=== PATIENT | female | born 1955 | race American Indian/Alaskan Native ===

== ENCOUNTER 2016-08-12 09:19 | Emergency (ER) | payer OTHER ==
[2016-08-12 09:28] VITALS: BP 159/94
[2016-08-12] MEDS ORDERED: BOOSTRIX IM ONE (11:04)
--- NOTE | 2016-08-12 11:08 | Emergency Department Report ---
ED Laceration HPI - HPI Chief Complaint: Wound/Laceration Stated Complaint: LT FINGER CUT Occurred When: Today Location: Upper Extremity Severity: mild Tetanus Status: Unknown Laceration Symptoms: Yes Pain, No Foreign Body Sensation, No Numbness, No Weakness Other History: 60-year-old -[place] female with a past medical history of hypertension currently taking no medications comes in for laceration to the finger of her left hand middle finger. Patient reports that she was cutting hedges in her fingertips to clippers. Patient reports she is not sure that she is up-to-date on her tetanus. Patient does report she ran the water over the wound and wrapped it up applied pressure and came to the emergency room for evaluation. ED Review of Systems ROS: Stated complaint: LT FINGER CUT Other details as noted in HPI Comment: All other systems reviewed and negative Constitutional: denies: chills, fever Eyes: denies: eye pain, eye discharge, vision change ENT: denies: ear pain, throat pain Respiratory: denies: cough, shortness of breath, wheezing Cardiovascular: denies: chest pain, palpitations ED Past Medical Hx - Past Medical History Hx Hypertension: Yes - Surgical History Hx Cholecystectomy: Yes Additional Surgical History: CARPAL TUNNEL - Social History Smoking Status: Never Smoker Substance Use Type: Alcohol Laceration Physical Exam - Exam General: Vital signs noted. No distress. Alert and acting appropriately. Wound Length (cm): 1 Laceration Location: Upper Extremity Laceration Exam: Yes Normal Distal CMS, No Foreign Body, No Exposed Tendon, Vessel, or Nerve, No Tendon Injury ED Course Vital Signs 08/12/16 09:24 Temperature 97.8 F Pulse Rate 97 H Respiratory 18 Rate Blood Pressure 159/94 O2 Sat by Pulse 99 Oximetry - Laceration /Wound Repair Left Finger Wound Location: upper extremity Wound Length (cm): 1 Wound's Depth, Shape: superficial Wound Explored: clean Betadine Prep?: Yes Wound Debrided: minimal Wound Repaired With: Dermabond ED Medical Decision Making - Medical Decision Making Patient's been evaluated by this provider fast track. Patient's wound was able to be repaired with Dermabond. Clean sterile dressing placed. Tetanus vaccine order. Discussed with patient to keep the area clean and dry. Keep a Band-Aid on it. Follow-up to primary care provider if any signs of infection such as fever chills discharge from the finger. Patient verbalized understanding Critical care attestation.: If time is entered above; I have spent that time in minutes in the direct care of this critically ill patient, excluding procedure time. ED Disposition Clinical Impression: Laceration of finger of left hand Disposition: DISCHARGED TO HOME OR SELFCARE Is pt being admited?: No Does the pt Need Aspirin: No Condition: Stable Instructions: Skin Adhesive Care (ED) Additional Instructions: Please keep your own clean and dry. Place a Band-Aid on it and return to the emergency room or primary care physician as an infection fever chills. On discharge from the wound swelling redness. Referrals: ANYA BOLAND MD [Primary Care Provider] - 3-5 Days Forms: Work/School Release Form(ED)
== END 2016-08-12 11:16 | disposition home or self-care (01) ==
LOC: ED 09:19
DX: S61.213A Laceration without foreign body of left middle finger without damage to nail, initial encounter (principal); I10 Essential (primary) hypertension; Z90.49 Acquired absence of other specified parts of digestive tract; W45.8XXA Other foreign body or object entering through skin, initial encounter; Y93.89 Activity, other specified; Y99.8 Other external cause status; Y92.89 Other specified places as the place of occurrence of the external cause
CPT/HCPCS: 90471; 90715; 99282